=== PATIENT | female | born 1955 | race Caucasian/White ===

== ENCOUNTER 2022-10-14 11:48 | Outpatient (CLI) | payer MEDICARE ==
[~2022-10-14] VITALS: Ht 157.5 cm; Wt 86.4 kg
[2022-10-14] MEDS ORDERED: APIX5TAB PO (12:54)
[2022-10-14] MEDS ORDERED: SIMV40TA25 PO (12:54)
[2022-10-14] MEDS ORDERED: METH2.5T PO (12:54)
[2022-10-14] MEDS ORDERED: MULT-1060 PO (12:54)
[2022-10-14] MEDS ORDERED: FOLI0.4T6 PO (12:54)
[2022-10-14] MEDS ORDERED: MTP100TCR PO (12:54)
[2022-10-14] MEDS ORDERED: ATOR40TA70 PO (12:54)
[2022-10-14] MEDS ORDERED: [UNRECOGNIZED DRUG - OTHER] PO (12:54)
[2022-10-14] MEDS ORDERED: HYDR-3817 PO (12:54)
[2022-10-14] MEDS ORDERED: GLIM4TAB5 PO (12:54)
[2022-10-14] MEDS ORDERED: FURO20TA4 PO (12:54)
[2022-10-14] MEDS ORDERED: SITA50TA PO (12:54)
== END 2022-10-14 13:07 | disposition home or self-care (01) ==
LOC: PREOP 11:48
PROVIDERS: ATTEND Specialist
DX: Z01.818 Encounter for other preprocedural examination (principal)

== ENCOUNTER 2022-10-22 09:46 | Day surgery (SDC) | payer MEDICARE, MEDICAID ==
[~2022-10-22] VITALS: Ht 157.5 cm; Wt 86.4 kg
[~2022-10-22 09:46] MED LIST: APIX5TAB PO; ATOR40TA70 PO; FOLI0.4T6 PO; FURO20TA4 PO; GLIM4TAB5 PO; HYDR-3817 PO; METH2.5T PO; MTP100TCR PO; MULT-1060 PO; SIMV40TA25 PO; SITA50TA PO; [UNRECOGNIZED DRUG - OTHER] PO
[2022-10-22] MEDS: TETRACAINE 0.5% OPHTH SOLN 4 ML BTL (SINGLE DOSE ONLY) OU PRN ×2 (10:16→10:23)
[2022-10-22] MEDS: TROPICAMIDE 1% OPH SOLN (MYDRIACYL) 15 ML BTL OU PRN ×2 (10:18→10:23)
[2022-10-22] MEDS: PHENYLEPHRINE 10% OPHTH (NEO-SYN) 5 ML BTL OU PRN ×2 (10:18→10:23)
[2022-10-22 10:19] VITALS: BP 112/70
--- NOTE | 2022-10-22 11:05 | Ophthalmologist Pre-Op Note ---
Pre-Operative Progress Note H&P Reviewed The H&P was reviewed, patient examined and no changes noted. Date H&P Reviewed: Oct 22, 2022 Time H&P Reviewed: 10:40 Pre-Op Dx Secondary Cataract, Bilateral Eyes IRIS RASHID MD Oct 22, 2022 11:04
--- NOTE | 2022-10-22 11:05 | Ophthalmology Operative Report ---
YAG Capsulotomy PREOPERATIVE DIAGNOSIS: Secondary Cataract Bilateral POSTOPERATIVE DIAGNOSIS: Secondary Cataract Bilateral PROCEDURE: YAG Capsulotomy, Bilateral SURGEON: Abdirashid Rashid ANESTHESIA: Topical anesthesia COMPLICATIONS: None ESTIMATED BLOOD LOSS: Minimal DESCRIPTION OF PROCEDURE: After proper informed consent was obtained, the patient's, a [id number] female , received one drop of Tropicamide and one drop of Tetracaine in each eye. The patient was then placed at the YAG laser and using a power of [ 3.9] millijoules and bursts [ 14] right eye and [12 ] left eye were used to fashion a central capsulotomy. The patient tolerated the procedure well without complications. ABDIRASHID RASHID MD Oct 22, 2022 11:05
== END 2022-10-22 10:50 | disposition home or self-care (01) ==
LOC: SDC 09:46
PROVIDERS: ATTEND Specialist
DX: H26.40 Unspecified secondary cataract (principal); E11.36 Type 2 diabetes mellitus with diabetic cataract; F17.200 Nicotine dependence, unspecified, uncomplicated
CPT/HCPCS: 82947